=== PATIENT | female | born 1930 | race Caucasian/White ===

== ENCOUNTER 2017-07-02 17:17 | Inpatient (IN) | payer OTHER, BC ==
[~2017-07-02] VITALS: Ht 149.9 cm; Wt 73.1 kg
[~2017-07-02 17:17] MED LIST: CHLORTHALIDONE25 MG PO; COZAAR50 MG PO; ECOTRIN325 MG PO; MEVACOR40 MG PO; NAPROXEN500 MG PO; NORVASC5 MG PO; PRILOSEC20 MG PO; SYNTHROID25 MCG PO; TOPROL XL50 MG PO; VITAMIN D31000 UNI2 PO
[2017-07-02 18:26] LABS: HEMATOCRIT 35.5 % (36.0-46.0); HEMOGLOBIN 11.8 G/DL (11.9-15.5); MCH 28.6 PG (29.0-34.0); MCHC 33.2 G/DL (30.0-36.0); MCV 86.2 FL (83-99); PLATELET COUNT 273 K/uL (156-360); RBC DIS.WIDTH-CV 14.6 % (11.8-14.6); RBC DIS.WIDTH-SD 46.8 % (39-53); RED BLOOD COUNT 4.12 M/uL (3.80-5.20); WHITE BLOOD COUNT 5.6 K/uL (4.1-10.2)
[2017-07-02 18:37] LABS: CHLORIDE 96 mEq/L (99-109); POTASSIUM 4.5 mEq/L (3.7-5.4); SODIUM 132 mEq/L (136-147)
[2017-07-02 18:38] LABS: GLUCOSE 93 mg/dL (70-99)
[2017-07-02 18:42] LABS: CREATININE 1.2 mg/dL (0.6-1.3); GFR ESTIMATE (CALCULATED) 45 mL/min/
[2017-07-02 18:43] LABS: UREA NITROGEN (BUN) 22 mg/dL (9-23)
[2017-07-02 21:24] LABS: ALBUMIN 3.6 g/dL (3.2-4.8)
[2017-07-02 21:27] LABS: TOTAL PROTEIN 7.9 g/dL (6.4-8.3)
[2017-07-02 21:28] LABS: TOTAL BILIRUBIN 0.6 mg/dL (0.0-1.0)
[2017-07-02 21:30] LABS: ALKALINE PHOSPHATASE 103 IU/L (3-129)
[2017-07-02 21:32] LABS: AST (GOT) 22 IU/L (2-34); DIRECT BILIRUBIN 0.3 mg/dL (0.0-0.3)
[2017-07-02 21:33] LABS: ALT (GPT) 13 IU/L (3-49); LIPASE 54 U/L (1.0-51.0)
[2017-07-02 21:40] LABS: TROP-I INTERPRETATION NEGATIVE; TROPONIN-I 0.02 ng/mL (0.0-0.30)
[2017-07-02 22:35] LABS: THYROTROPIN (TSH) 5.7 MIU/L (0.4-5.5)
[2017-07-02 23:41] LABS: APPEARANCE CLEAR ((CLEAR)); BILIRUBIN NEGATIVE; BLOOD SMALL; COLOR YELLOW ((YELLOW)); GLUCOSE (STRIP) NEGATIVE; KETONES NEGATIVE; LEUKOCYTES NEGATIVE; NITRITE NEGATIVE; PROTEIN (STRIP) 30; UROBILINOGEN 0.2 MG/DL (0.2-1.0)
[2017-07-02 23:44] LABS: BACTERIA NONE SEEN /HPF; EPITHELIAL CELLS RARE /HPF; MUCUS NONE SEEN /LPF; RED BLOOD CELLS 0-5 /HPF (0-5); UCUL ADDED? NO; WHITE BLOOD CELLS 0-5 /HPF (0-5)
[2017-07-03] MEDS ORDERED: PROAIR HFA8.5 GM IH (01:28)
[2017-07-03] MEDS ORDERED: LEVOFLOXACIN500 MG PO (01:29)
[2017-07-03] MEDS ORDERED: DONEPEZIL HCL5 MG PO (01:29)
[2017-07-03] MEDS ORDERED: ESCITALOPRAM OX10 MG PO (01:31)
[2017-07-03] MEDS ORDERED: LOVASTATIN40 MG PO (01:33)
[2017-07-03] MEDS ORDERED: QUETIAPINE FUMA25 MG PO (01:33)
[2017-07-03] MEDS ORDERED: AMLODIPINE BESY10 MG PO (01:34)
[2017-07-03] MEDS ORDERED: CARVEDILOL25 MG PO (01:35)
[2017-07-03] MEDS ORDERED: OMEPRAZOLE20 MG PO (01:37)
[2017-07-03] MEDS ORDERED: LEVOTHYROXINE50 MCG PO (01:37)
[2017-07-03] MEDS ORDERED: IRBESARTAN300 MG PO (01:38)
[2017-07-03 12:46] VITALS: BP 172/77
[2017-07-03 16:08] VITALS: BP 167/67
[2017-07-03 19:50] LABS: HEMATOCRIT 32.5 % (36.0-46.0); HEMOGLOBIN 10.8 G/DL (11.9-15.5)
[2017-07-03 21:00] VITALS: BP 138/58
[2017-07-03 23:47] VITALS: BP 141/72
[2017-07-04 04:08] VITALS: BP 175/72
[2017-07-04 07:20] VITALS: BP 174/74
[2017-07-04 08:55] LABS: HEMATOCRIT 31.2 % (36.0-46.0); HEMOGLOBIN 10.4 G/DL (11.9-15.5); MCV 85.5 FL (83-99)
[2017-07-04 11:26] VITALS: BP 125/58
[2017-07-04 16:09] VITALS: BP 140/65
[2017-07-04 20:00] VITALS: BP 147/67
[2017-07-04 23:41] VITALS: BP 156/69
[2017-07-05 03:34] VITALS: BP 92/55
[2017-07-05 07:50] VITALS: BP 144/72
[2017-07-05 11:16] VITALS: BP 128/89
[2017-07-05 13:16] LABS: STOOL OCCULT BLD 1ST SPECIMEN NEGATIVE
[2017-07-05 16:01] VITALS: BP 133/89
[2017-07-05 20:32] VITALS: BP 127/58
[2017-07-05 23:17] VITALS: BP 132/61
[2017-07-06 03:52] VITALS: BP 150/62
[2017-07-06 05:46] LABS: HEMATOCRIT 30.5 % (36.0-46.0); HEMOGLOBIN 10.1 G/DL (11.9-15.5); MCH 28.2 PG (29.0-34.0); MCHC 33.1 G/DL (30.0-36.0); MCV 85.2 FL (83-99); PLATELET COUNT 255 K/uL (156-360); RBC DIS.WIDTH-CV 14.7 % (11.8-14.6); RBC DIS.WIDTH-SD 46.1 % (39-53); RED BLOOD COUNT 3.58 M/uL (3.80-5.20); WHITE BLOOD COUNT 7.7 K/uL (4.1-10.2)
[2017-07-06 07:19] VITALS: BP 153/65
[2017-07-06 11:00] VITALS: BP 152/69
[2017-07-06 13:47] LABS: CHLORIDE 100 MEQ/L (99-109); SODIUM 133 MEQ/L (136-147)
[2017-07-06 13:49] LABS: POTASSIUM 3.1 MEQ/L (3.7-5.4)
[2017-07-06 13:53] LABS: GFR ESTIMATE (CALCULATED) 56 mL/min/; GLUCOSE 195 mg/dL (70-99); UREA NITROGEN (BUN) 12 mg/dL (9-23)
[2017-07-06 14:17] LABS: FOLIC ACID (FOLATE) > 22.0 NG/ML (5.0-22.0)
[2017-07-06 17:55] VITALS: BP 140/70
[2017-07-06 19:21] VITALS: BP 122/56
[2017-07-07 00:05] VITALS: BP 126/40
[2017-07-07 04:27] VITALS: BP 147/67
[2017-07-07 07:05] VITALS: BP 139/63
[2017-07-07 08:20] LABS: HEMATOCRIT 30.4 % (36.0-46.0); HEMOGLOBIN 10.2 G/DL (11.9-15.5); MCH 29.1 PG (29.0-34.0); MCHC 33.6 G/DL (30.0-36.0); MCV 86.9 FL (83-99); PLATELET COUNT 220 K/uL (156-360); RBC DIS.WIDTH-CV 15.4 % (11.8-14.6); RBC DIS.WIDTH-SD 48.4 % (39-53); WHITE BLOOD COUNT 6.8 K/uL (4.1-10.2)
[2017-07-07 08:55] LABS: CHLORIDE 107 MEQ/L (99-109); CREATININE 0.9 MG/DL (0.6-1.3); GFR ESTIMATE (CALCULATED) > 59 mL/min/; POTASSIUM 3.6 MEQ/L (3.7-5.4); SODIUM 138 MEQ/L (136-147); UREA NITROGEN (BUN) 14 mg/dL (9-23)
[2017-07-07 08:56] LABS: GLUCOSE 85 mg/dL (70-99)
[2017-07-07 11:15] VITALS: BP 126/60
[2017-07-07] MEDS ORDERED: LOSARTAN POTAS100 MG PO (11:19)
== END 2017-07-07 14:48 | DRG 378 ==
LOC: EME 17:17 → ENRESERV 07-03 02:20 → EDOF 07-03 02:20 → ENRESERV 07-03 11:38 → 5WEST 07-03 12:27
PROVIDERS: Hospitalist; Nurse Practitioner Adult Health; Nurse Practitioner Family; Physician Assistant
DX: K92.2 Gastrointestinal hemorrhage, unspecified (principal); F03.91 Unspecified dementia, unspecified severity, with behavioral disturbance; R41.0 Disorientation, unspecified; Z85.038 Personal history of other malignant neoplasm of large intestine; I10 Essential (primary) hypertension; E87.6 Hypokalemia; Z79.899 Other long term (current) drug therapy
CPT/HCPCS: 70450; 70551; 71046; 80048; 80076; 81003; 82272; 82607; 82746; 83605; 83690; 84443; 84484; 85014; 85018; 85027; 86850; 86900; 86901; 87040; 93005; 97530 GP; 99202; 99281; 99284; G0378; J2060; J2765; J7030